=== PATIENT | male | born 1975 | race Caucasian/White ===

== ENCOUNTER → 2016-11-18 | Outpatient (CLI) | payer OTHER ==
[~2016-11-18] MED LIST: LISI-729 PO; prednisone PO
--- NOTE | 2016-11-18 08:17 | DIAGNOSTIC IMAGING REPORT ---
ABDOMEN AND PELVIS CT WITHOUT CONTRAST CT DOSE: 853.34 mGy.cm HISTORY: Left lower quadrant abdominal pain. INGUINAL HERNIA TECHNIQUE: Multiaxial CT images of the abdomen and pelvis were performed without contrast. A dose lowering technique was utilized adhering to the principles of ALARA. COMPARISON STUDY: None. FINDINGS: The lung bases are clear. No pneumoperitoneum. No pneumatosis. Bilateral L5 spondylolysis with associated 3 mm of anterolisthesis. Mild anterior wedging within the T10-T12 vertebral bodies consistent with old compression deformities. No acute fractures identified. Tiny fat-containing left inguinal hernia. Small to moderate-sized fat-containing umbilical hernia. This measures 6.2 cm. The neck of the hernia measures 3.1 cm. A 1.9 cm fat-containing structure within the left anterior abdomen best seen on image 214. There is no surrounding inflammatory change. This may represent an old omental infarct or epiploic appendage. This is of doubtful clinical significance. Bladder is completely decompressed which likely accounts for the apparent bladder wall thickening. No retroperitoneal lymphadenopathy. The unenhanced liver, spleen, pancreas, gallbladder, adrenal glands, and kidneys are unremarkable. No renal stones. No hydronephrosis. Colonic diverticulosis. No bowel wall thickening or obstruction. Normal appendix. IMPRESSION: 1. Tiny left fat-containing inguinal hernia. 2. Mild to moderate fat-containing umbilical hernia. 3. Old mild anterior wedge-shaped compression deformities from T10 through T12. Electronically signed by: Richard Rodas M.D. 11/18/2016 8:15 AM Dictated Date/Time: 11/18/2016 8:01 AM
== END | disposition home or self-care (01) ==
LOC: C.CTS 06:50
PROVIDERS: ATTEND Nurse Practitioner Family
DX: R10.32 Left lower quadrant pain (principal); K40.90 Unilateral inguinal hernia, without obstruction or gangrene, not specified as recurrent; K42.9 Umbilical hernia without obstruction or gangrene

== ENCOUNTER → 2016-12-16 | Outpatient (CLI) | payer OTHER ==
[2016-12-16 17:45] LABS: BASO % 0.4 %; BASO ABS # 0.03 K/uL (0-0.2); COMPLETE YES; EOS % 2.9 %; HEMATOCRIT 43.6 % (42-52); IG% 0.2 %; MEAN CELL VOLUME 89.7 fL (80-100); MEAN CORPUSCULAR HEMOGLOBIN 30.2 pg (25-34); MEAN CORPUSCULAR HGB CONC 33.7 g/dl (32-36); MEAN PLATELET VOLUME 9.9 fL (7.4-10.4); MONO % 9.1 %; NEUT % 63.4 %; PLATELET COUNT 249 K/uL (130-400); RED BLOOD COUNT 4.86 M/uL (4.7-6.1); WHITE BLOOD COUNT 8.35 K/uL (4.8-10.8)
== END | disposition home or self-care (01) ==
LOC: C.LABBFT 15:16
PROVIDERS: ATTEND Surgery
DX: Z01.812 Encounter for preprocedural laboratory examination (principal); K40.90 Unilateral inguinal hernia, without obstruction or gangrene, not specified as recurrent

== ENCOUNTER 2017-01-07 07:13 | Day surgery (SDC) | payer OTHER ==
[2016-12-17 15:41] VITALS: Ht 172.7 cm; Wt 104.5 kg
[~2017-01-07] VITALS: Ht 172.7 cm; Wt 104.5 kg
[~2017-01-07 07:13] MED LIST changes: +CEFAZOLIN 2000 MG/60 ML D5W 60 ML IV SCH; +CEFAZOLIN 2000MG IV PUSH 10 ML IV SCH; +LACTATED RINGER'S 1000ML 1,000 ML IV SCH
[2017-01-07 07:36] VITALS: BP 141/73; PULSE 72; TEMP 36.7; O2SAT 97
[2017-01-07] MEDS ORDERED: HYDROmorphone INJ 1 MG/ML SYR IV PRN (07:45)
[2017-01-07] MEDS ORDERED: FENTANYL CITRATE INJ 50 MCG/1 ML 2 ML VIAL IV PRN (07:45)
[2017-01-07] MEDS ORDERED: EpHEDrine SULFATE INJ 50 MG/ML AMP IV PRN (07:45)
[2017-01-07] MEDS ORDERED: ONDANSETRON INJ 2 MG/ML 2 ML VIAL IV PRN ×2 (07:45→11:30)
[2017-01-07] MEDS ORDERED: LABETALOL HCL IV 5 MG/ML 20ML IV PRN (07:45)
[2017-01-07] MEDS ORDERED: MEPERIDINE HCL 25 MG/ML CARP IV PRN (07:45)
[2017-01-07] MEDS ORDERED: ATROPINE SULFATE 0.1 MG/ML 5ML SYR IV PRN (07:45)
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
[2017-01-07] MEDS ORDERED: MIDAZOLAM HCL 1 MG/ML 2ML VIAL ONE (09:05)
[2017-01-07] MEDS ORDERED: ROCURONIUM BROMIDE 10 MG/ML 5 ML VIAL IV ONE (09:05)
[2017-01-07] MEDS ORDERED: PROPOFOL IV EMULSION 10 MG/ML 20 ML VIAL IV ONE (09:05)
[2017-01-07] MEDS ORDERED: LIDOCAINE HCL 2% 2 ML VIAL (20MG/ML) ONE (09:05)
[2017-01-07] MEDS ORDERED: FENTANYL CITRATE INJ 50 MCG/1 ML 2 ML VIAL ONE ×2 (09:06→09:37)
[2017-01-07] MEDS ORDERED: BUPIVACAINE 0.5 % 5 MG/1 ML MPF 30ML VIAL ONE (09:06)
[2017-01-07] MEDS ORDERED: ONDANSETRON INJ 2 MG/ML 2 ML VIAL ONE (09:37)
[2017-01-07] MEDS ORDERED: DEXAMETHASONE SOD INJ 4 MG/ML VIAL ONE (09:37)
--- NOTE | 2017-01-07 11:15 | [facility] Post Operative Brief Note ---
Immediate Operative Summary Operative Date Jan 07, 2017. Pre-Operative Diagnosis Left Inguinal Hernia Post-Operative Diagnosis Left Inguinal Hernia Procedure(s) Performed Left Laparoscopic Inguinal Hernia Repair with Mesh Surgeon Dr. Lee Ornamenter Hand Surgeon(s) Alex Baxter PA-C Estimated Blood Loss 3mL Findings indirect inguinal hernia, no evidence of recurrent right inguinal hernia. Progrip mesh placed. Specimens none per surgeon Drains None Anesthesia GETA Complication(s) None Disposition Recovery Room / PACU
--- NOTE | 2017-01-07 11:21 | [facility] Operative Report ---
Operative Report Operative Date Jan 07, 2017. Pre-Operative Diagnosis Left Inguinal Hernia Post-Operative Diagnosis indirect left inguinal hernia Procedure(s) Performed Laparoscopic (TEPP) left inguinal hernia repair with mesh Surgeon Dr. Lee Commercial Real Estate Attorney Surgeon(s) Alex Baxter PA-C Estimated Blood Loss 3mL Findings indirect inguinal hernia, no evidence of recurrent right inguinal hernia. Progrip mesh placed. Specimens none per surgeon Drains None Anesthesia GETA Complication(s) None Disposition Recovery Room / PACU Indications 41-year-old male with a symptomatic left inguinal hernia, plan for laparoscopic left inguinal hernia repair, possible right. The risks of the procedure were discussed, all questions were answered, and the patient agreed to proceed with surgery as planned. Description of Procedure The patient was properly identified, consented, and taken to the operating room where he was placed in the supine position. General endotracheal anesthesia was induced. SCDs and a safety belt were placed. A gaona catheter was placed. Preoperative antibiotics were administered. The patient's groins and abdomen were prepped and draped in the standard sterile fashion. Surgical timeout was performed and all parties were in agreement that this was the correct patient and procedure to be performed and we continued as planned. A transverse infraumbilical incision was made to the right of midline with electrocautery and deepened down to the fascia with blunt dissection. A transverse incision was made in the anterior rectus sheath on the right. The rectus muscle was pulled laterally exposing the posterior rectus sheath. A large Astrid was used to bluntly dissect the preperitoneal space down to the pubic symphysis. This was then replaced with a laparoscopic preperitoneal dissection balloon, which was inflated under direct visualization and held in place for approximately 30 seconds. This was then removed and the preperitoneal space was insufflated with carbon dioxide which the patient tolerated without incident. Two 5 mm ports were then placed in the midline. Dissection started on the left, beginning laterally at the anterior superior iliac spine. Tito's ligament was then dissected medially. The cord structures were circumferentially dissected. A small indirect hernia was noted. It was dissected away from the cord structures. The contralateral side was then dissected in a similar manner. There is evidence of a previous plug and patch repair, but no recurrent hernia was noted. Progrip mesh was placed on the left and covered the direct, indirect, and femoral spaces. The mesh was held in place, the ports were removed, and the space was allowed to collapse. The anterior rectus sheath fascia was closed with 3-0 Vicryl suture. The skin of all port sites were closed with 4-0 Monocryl subcuticular suture, and Dermabond was placed over the incisions. The patient was extubated in the operating room and taken to the PACU for recovery without apparent incident. Any air in the scrotum was reduced, and the testicles were confirmed to be in the scrotum. All sponge, instrument, and needle counts were correct at the conclusion of the procedure. The patient tolerated the procedure well. I attest to the content of the Intraoperative Record and any orders documented therein. Any exceptions are noted below.
[2017-01-07] MEDS ORDERED: OXYC-57 PO (11:25)
[2017-01-07] MEDS ORDERED: IBUPROFEN 600 MG TAB PO PRN (11:30)
[2017-01-07] MEDS ORDERED: KETOROLAC TROMETHAMINE 15 MG/ML VIAL IV PRN (11:30)
[2017-01-07] MEDS ORDERED: OXYCODONE/ACETAMINOPHEN 5-325 TAB PO PRN ×2 (11:30)
--- NOTE | 2017-01-07 11:35 | Discharge Instructions ---
Discharge Instructions Date of Service Jan 07, 2017. Visit Reason for Visit: Left Inguinal Hernia Discharge Discharge Diagnosis / Problem: Left Inguinal Hernia Discharge Goals Goal(s): Decrease discomfort, Improve function Activity Recommendations Activity Limitations: as noted below Lifting Limitations: no more than 10 pounds Exercise/Sports Limitations: until after follow-up appointment (No heavy lifting or strenuous exercise) May Resume Sexual Activity: after follow-up appointment Shower/Bathe: tomorrow Driving or Machine Use: resume 3 days after discharge (When no longer using narcotic pain medication) Anesthesia . Post Anesthesia Instructions: If you have had General Anesthesia or IV Sedation: * Do not drive today. * Resume driving when surgeon permits. * Do not make important decisions or sign legal documents today. * Call surgeon for: 1. Temperature elevations greater than 101 degrees F. 2. Uncontrollable pain. 3. Excessive bleeding. 4. Persistent nausea and vomiting. 5. Medication intolerance (nausea, vomiting or rash). * For nausea and vomiting use only clear liquids such as: tea, soda, bouillon until nausea subsides, then gradually increase diet as tolerated. * If you have any concerns or questions, call your surgeon's office. If physician is unavailable and it is an emergency, call 911 or go to the nearest emergency room. . Instructions / Follow-Up Instructions / Follow-Up Please follow-up with Dr. Lee in the office in 2 weeks. Please call our office at [phone] to schedule an appointment if you have not done so already. [facility], [address] Diet Recommendations Recommended Home Diet: resume previous diet (Advance diet as tolerated) Procedures Procedures Performed: Left Laparoscopic Inguinal Hernia Repair with Mesh Pending Studies Studies pending at discharge: no Medical Emergencies . Who to Call and When: Medical Emergencies: If at any time you feel your situation is an emergency, please call 911 immediately. . Non-Emergent Contact Non-Emergency issues call your: Primary Care Provider, Surgeon Call Non-Emergent contact if: you have a fever, temperature is above 101.5, your pain is not controlled, your pain is worsening, wound has increased drainage, wound has increased redness . . "Provider Documentation" section prepared by Alex Baxter. . [place] Drug Monitoring Program Search Results: no issues identified
--- NOTE | 2017-01-07 11:49 | Anesthesiology Progress Note ---
Anesthesia Post Op Note Date & Time Jan 07, 2017 at 11:48 Vital Signs Pain Intensity: 0 Vital Signs Past 12 Hours Date Time Temp Pulse Resp B/P (MAP) Pulse Ox O2 Delivery O2 Flow Rate FiO2 01/07/17 11:45 71 16 126/71 96 Room Air 01/07/17 11:35 72 16 128/74 94 Oxymask 15 01/07/17 11:25 70 16 134/85 94 Oxymask 15 01/07/17 11:18 36.6 76 16 136/89 97 Oxymask 15 01/07/17 07:36 36.7 72 141/73 (95) 97 Room Air Notes Mental Status: alert / awake / arousable, participated in evaluation Pt Amnestic to Procedure: Yes Nausea / Vomiting: adequately controlled Pain: adequately controlled Airway Patency, RR, SpO2: stable & adequate BP & HR: stable & adequate Hydration State: stable & adequate Anesthetic Complications: no major complications apparent
[2017-01-07] MEDS ORDERED: LACTATED RINGER'S 1000ML 1,000 ML IV SCH (12:00)
[2017-01-07 12:05] VITALS: BP 115/74; PULSE 58; TEMP 36.7; O2SAT 100
[2017-01-07 12:35] VITALS: BP 116/75; PULSE 69; TEMP 36.9; O2SAT 98
[2017-01-08] MEDS ORDERED: LISINOPRIL 5 MG TAB PO SCH (09:00)
== END 2017-01-07 12:57 | disposition home or self-care (01) ==
LOC: C.ACU 07:13
PROVIDERS: ATTEND Surgery
DX: K40.90 Unilateral inguinal hernia, without obstruction or gangrene, not specified as recurrent (principal); K42.9 Umbilical hernia without obstruction or gangrene; I10 Essential (primary) hypertension; Z82.49 Family history of ischemic heart disease and other diseases of the circulatory system; Z87.891 Personal history of nicotine dependence; E66.9 Obesity, unspecified; G47.33 Obstructive sleep apnea (adult) (pediatric)

== ENCOUNTER 2017-05-25 09:29 | Day surgery (SDC) | payer OTHER ==
[2017-05-21 15:42] VITALS: BMI 36.0
[~2017-05-25] VITALS: Ht 172.7 cm; Wt 108.0 kg
[~2017-05-25 09:29] MED LIST changes: -CEFAZOLIN 2000 MG/60 ML D5W 60 ML IV SCH; -CEFAZOLIN 2000MG IV PUSH 10 ML IV SCH; +CEFAZOLIN 2000MG IV PUSH 15 ML IV SCH; -prednisone PO
[2017-05-25 09:55] VITALS: BP 133/88; PULSE 72; TEMP 36.8; O2SAT 96; Ht 172.7 cm; Wt 108.0 kg
[2017-05-25] MEDS ORDERED: FENTANYL CITRATE INJ 50 MCG/1 ML 2 ML VIAL ONE ×2 (10:48→12:06)
[2017-05-25] MEDS ORDERED: MIDAZOLAM HCL 1 MG/ML 2ML VIAL ONE (10:48)
[2017-05-25] MEDS ORDERED: PHENYLEPHRINE 100MCG/ML 5ML SYR IV PRN (11:00)
[2017-05-25] MEDS ORDERED: PROMETHAZINE HCL INJ 12.5 MG in SODIUM CHLORIDE 0.9% 50ML 50 ML IV PRN (11:00)
[2017-05-25] MEDS ORDERED: EpHEDrine SULFATE INJ 50 MG/ML AMP IV PRN (11:00)
[2017-05-25] MEDS ORDERED: ONDANSETRON INJ 2 MG/ML 2 ML VIAL IV PRN ×2 (11:00→13:30)
[2017-05-25] MEDS ORDERED: FENTANYL CITRATE INJ 50 MCG/1 ML 2 ML VIAL IV PRN (11:00)
[2017-05-25] MEDS ORDERED: ATROPINE SULFATE 0.1 MG/ML 5ML SYR IV PRN (11:00)
[2017-05-25] MEDS ORDERED: HYDROmorphone INJ 1 MG/ML SYR IV PRN (11:00)
--- NOTE | 2017-05-25 11:15 | History & Physical Bridge Note ---
H&P Re-Evaluation Bridge Note: I have examined the patient, reviewed the History & Physical and in the interval since the performance of the History & Physical I have noted the following changes of clinical significance: No changes noted
[2017-05-25] MEDS ORDERED: BUPIVACAINE 0.5 % 5 MG/1 ML MPF 30ML VIAL ONE (11:17)
[2017-05-25] MEDS ORDERED: OXYC-57 PO (11:21)
--- NOTE | 2017-05-25 11:22 | Discharge Instructions ---
Discharge Instructions Date of Service May 25, 2017. Visit Reason for Visit: Recurrent Umbilical Hernia Discharge Discharge Diagnosis / Problem: umbilical hernia repair Discharge Goals Goal(s): Decrease discomfort Activity Recommendations Activity Limitations: as noted below Lifting Limitations: no more than 10 pounds Shower/Bathe: tomorrow Driving or Machine Use: resume 3 days after discharge Anesthesia . Post Anesthesia Instructions: If you have had General Anesthesia or IV Sedation: * Do not drive today. * Resume driving when surgeon permits. * Do not make important decisions or sign legal documents today. * Call surgeon for: 1. Temperature elevations greater than 101 degrees F. 2. Uncontrollable pain. 3. Excessive bleeding. 4. Persistent nausea and vomiting. 5. Medication intolerance (nausea, vomiting or rash). * For nausea and vomiting use only clear liquids such as: tea, soda, bouillon until nausea subsides, then gradually increase diet as tolerated. * If you have any concerns or questions, call your surgeon's office. If physician is unavailable and it is an emergency, call 911 or go to the nearest emergency room. . Instructions / Follow-Up Instructions / Follow-Up Dr. Lee in 1-2 weeks as planned, call [phone] if you have any questions or do not have an appt Diet Recommendations Recommended Home Diet: no limitations Pending Studies Studies pending at discharge: no Medical Emergencies . Who to Call and When: Medical Emergencies: If at any time you feel your situation is an emergency, please call 911 immediately. . Non-Emergent Contact Non-Emergency issues call your: Surgeon Call Non-Emergent contact if: you have a fever, temperature is above 101.5, your pain is not controlled, wound has increased redness, you have any medication questions . . "Provider Documentation" section prepared by Miki Burciaga. .
[2017-05-25] MEDS ORDERED: ONDANSETRON INJ 2 MG/ML 2 ML VIAL ONE (12:08)
[2017-05-25] MEDS ORDERED: DEXAMETHASONE SOD INJ 4 MG/ML VIAL ONE (12:08)
[2017-05-25] MEDS ORDERED: ROCURONIUM BROMIDE 10 MG/ML 5 ML VIAL IV ONE (12:08)
[2017-05-25] MEDS ORDERED: LIDOCAINE HCL 2% 2 ML VIAL (20MG/ML) ONE (12:08)
[2017-05-25] MEDS ORDERED: NEOSTIGMINE METHYLSULFATE 5 MG/5 ML SYR ONE (12:08)
[2017-05-25] MEDS ORDERED: GLYCOPYRROLATE INJ 0.2 MG/ML VIAL ONE (12:08)
[2017-05-25] MEDS ORDERED: PROPOFOL IV EMULSION 10 MG/ML 20 ML VIAL IV ONE (12:08)
[2017-05-25] MEDS ORDERED: BUPIVACAINE LIPOSOME 1/3% 266 MG/20 ML VIAL INFIL ONE (12:44)
--- NOTE | 2017-05-25 13:08 | [facility] Post Operative Brief Note ---
Immediate Operative Summary Operative Date May 25, 2017. Pre-Operative Diagnosis Recurrent umbilical hernia Post-Operative Diagnosis Recurrent incarcerated umbilical hernia Procedure(s) Performed Repair of recurrent umbilical hernia repair with mesh Surgeon Dr. Lee Toolroom Helper Surgeon(s) Gaston Galvez PA-C Estimated Blood Loss 10 cc Findings Consistent with Post-Op Diagnosis 4 cm defect, incarcerated omentum 8 cm Cqur placed Specimens none, as per surgeon Drains None Anesthesia Type General Complication(s) none Disposition Accompanied Pt To Recover: no Disposition: Recovery Room / PACU
--- NOTE | 2017-05-25 13:16 | [facility] Operative Report ---
Operative Report Operative Date May 25, 2017. Pre-Operative Diagnosis Recurrent umbilical hernia Post-Operative Diagnosis Incarcerated recurrent umbilical hernia Procedure(s) Performed Repair of incarcerated recurrent umbilical hernia with mesh Surgeon Dr. Lee Plating Equipment Tender Surgeon(s) Gaston Galvez PA-C Estimated Blood Loss 10 cc Findings 4 cm defect with hernia containing incarcerated omentum was reduced, significant scarring from prior repair. 8 cm Cqur mesh sewn into place in a clockwise fashion with 0 Nurolon's, fascia closed over top. Small hole and skin of umbilicus closed in layers. Specimens none, as per surgeon Drains None Anesthesia General Complication(s) None Disposition Recovery Room / PACU Indications 41-year-old male with a history of a prior laparoscopic umbilical hernia repair , now with recurrent incarcerated umbilical hernia containing fat. Plan for open umbilical hernia repair. The risks of the procedure were discussed, all questions were answered, and the patient agreed to proceed with surgery as planned. Description of Procedure The patient was properly identified, consented, and taken to the operating room where he was placed in the supine position. General endotracheal anesthesia was induced. SCDs and a safety belt were placed. Preoperative antibiotics were administered. The patient's abdomen was prepped and draped in the standard sterile fashion. Surgical timeout was performed and all parties were in agreement that this was the correct patient and procedure to be performed and we continued as planned. A curvilinear infraumbilical incision was made and deepened down to the fascia with blunt dissection. The umbilical stalk was circumferentially dissected with a Astrid, and divided below the level of the skin. There was a large incarcerated hernia containing omentum. This was significantly scarred to the skin and fascia, and was dissected free. The hernia sac was opened partially to allow for reduction of the omentum. The hernia was reduced. A 4 cm fascial defect was encountered. The fascia anteriorly and posteriorly was cleared of investing tissue for several centimeters. There was significant scar tissue from his prior laparoscopic repair posterior to the fascia. Hemostasis was achieved within the wound. A 8 cm piece of Cqur mesh was sown into place in a clockwise fashion with interrupted 0 Nurolon sutures. The fascia was then closed with interrupted 0 Nurolon sutures. The wound was irrigated and hemostasis confirmed. There was a small defect in the skin of the umbilicus caused by the dissection. It was closed with 3-0 Vicryl deep dermal sutures followed by 4-0 Monocryl subcuticular suture. The umbilicus was tacked down to the fascia with 3-0 Vicryl sutures. Local anesthetic in the form of Exparel mixed one-to-one with 0.5% Marcaine was injected in the fascia and along the skin incision. The skin was closed with interrupted 3-0 Vicryl deep dermal sutures, followed by 4-0 Monocryl running subcuticular suture. Dermabond was placed over the wound. A pressure dressing was placed in the umbilicus after the Dermabond dried, and an abdominal binder was placed. The patient was extubated in the operating room and taken to the PACU where he recovered without apparent incident. All sponge, instrument and needle counts were correct at the conclusion of the procedure. The patient tolerated the procedure well. The physician's ortho assistant was present and scrubbed for the entirety of the case. He was critical in positioning the patient, prepping and draping, retraction and exposure, reducing the hernia, placement of the mesh, closure of the skin and placement of the dressings per I attest to the content of the Intraoperative Record and any orders documented therein. Any exceptions are noted below.
[2017-05-25] MEDS ORDERED: LACTATED RINGER'S 1000ML 1,000 ML IV SCH (13:22)
[2017-05-25] MEDS ORDERED: MoRPHine SULFATE 4 MG/ML 1 ML CARP\\VIAL IV PRN (13:30)
[2017-05-25] MEDS ORDERED: OXYCODONE/ACETAMINOPHEN 5-325 TAB PO PRN (13:30)
--- NOTE | 2017-05-25 13:49 | Anesthesiology Progress Note ---
Anesthesia Post Op Note Date & Time May 25, 2017 at 13:48 Vital Signs Pain Intensity: 0 Vital Signs Past 12 Hours Date Time Temp Pulse Resp B/P (MAP) Pulse Ox O2 Delivery O2 Flow Rate FiO2 05/25/17 13:40 67 12 130/85 100 Oxymask 10 05/25/17 13:30 59 12 133/83 100 Oxymask 10 05/25/17 13:20 36.2 68 15 129/89 100 Oxymask 10 05/25/17 09:55 36.8 72 18 133/88 (103) 96 Room Air Notes Mental Status: alert / awake / arousable, participated in evaluation Pt Amnestic to Procedure: Yes Nausea / Vomiting: adequately controlled Pain: adequately controlled Airway Patency, RR, SpO2: stable & adequate BP & HR: stable & adequate Hydration State: stable & adequate Anesthetic Complications: no major complications apparent Awake, doing well, no complaints. VSS.
[2017-05-25 14:00] VITALS: BP 126/68; PULSE 72; TEMP 36.6; O2SAT 95
[2017-05-25 14:30] VITALS: BP 121/83; PULSE 74; TEMP 36.6; O2SAT 95
== END 2017-05-25 15:05 | disposition home or self-care (01) ==
LOC: C.ACU 09:29
PROVIDERS: ATTEND Surgery
DX: K42.0 Umbilical hernia with obstruction, without gangrene (principal); G47.33 Obstructive sleep apnea (adult) (pediatric); I10 Essential (primary) hypertension; E66.9 Obesity, unspecified; Z68.36 Body mass index [BMI] 36.0-36.9, adult; Z87.891 Personal history of nicotine dependence; Z82.49 Family history of ischemic heart disease and other diseases of the circulatory system